=== PATIENT | female | born 1935 | race Caucasian/White ===

== ENCOUNTER → 2018-05-13 15:09 | Outpatient (CLI) | payer MEDICARE, OTHER, SELFPAY ==
--- NOTE | 2018-05-13 | DI.MG.S_ITS ---
UNILATERAL RIGHT DIGITAL SCREENING MAMMOGRAM 3D/2D WITH CAD: 05/13/2018 CLINICAL: Routine screening. Personal history of left breast cancer. Comparison is made to exams dated: 11/28/2016 mammogram, 12/07/2015 mammogram, and 11/30/2015 mammogram - [facility]. The tissue of the right breast is heterogeneously dense. This may lower the sensitivity of mammography. Current study was also evaluated with a Computer Aided Detection (CAD) system. There are clustered fine calcifications in the right breast at 4 o'clock middle depth. No other significant masses or calcifications are seen in the breast. IMPRESSION: INCOMPLETE: NEEDS ADDITIONAL IMAGING EVALUATION The clustered fine calcifications in the right breast are indeterminate. Mediolateral, spot magnification, and additional views are recommended. This exam was interpreted at Station ID: [id number]. NOTE: For mammograms, a report in lay terms will be sent to the patient. Approximately 15% of breast malignancies will not be visualized mammographically. In the management of a palpable breast mass, a negative mammogram must not discourage biopsy of a clinically suspicious lesion. Electronically Signed By: Raghav galloway/temitope:05/13/2018 18:12:01 copy to: TERRANCE CEVALLOS letter sent: Additional Imaging Needed ACR BI-RADS Category 0: Incomplete 3340F
== END ==
PROVIDERS: Visit Provider Internal Medicine Hematology & Oncology
DX: Z12.31 Encounter for screening mammogram for malignant neoplasm of breast (principal); Z85.3 Personal history of malignant neoplasm of breast
CPT/HCPCS: 77063; 77065

== ENCOUNTER → 2018-06-02 14:12 | Outpatient (CLI) | payer MEDICARE, OTHER, SELFPAY ==
--- NOTE | 2018-06-02 | DI.MG.S_ITS ---
UNILATERAL RIGHT DIGITAL DIAGNOSTIC MAMMOGRAM 3D/2D WITH ADDITIONAL VIEWS POST MASTECTOMY: 06/02/2018 CLINICAL: Additional evaluation requested from prior study. Comparison is made to exams dated: 05/13/2018 mammogram - [facility], 11/28/2016 mammogram, and 12/07/2015 mammogram - [facility]. The tissue of the right breast is heterogeneously dense. This may lower the sensitivity of mammography. Previously described clustered fine calcifications in the right breast at 4 o'clock middle depth on comparison screening mammograms persists with additional views and localizes to posterior depth, where there is a possible associated 0.5 cm low density oval mass. No other significant masses, calcifications, or other findings are seen in the breast. IMPRESSION: INCOMPLETE: NEEDS ADDITIONAL IMAGING EVALUATION Previously described clustered fine calcifications in the right breast at 4 o'clock middle depth on comparison screening mammograms persists with additional views and localizes to posterior depth, where there is a possible associated 0.5 cm low density oval mass. A targeted ultrasound is recommended for further evaluation, and will be performed immediately following this exam. This exam was interpreted at Station ID: [id number]. NOTE: For mammograms, a report in lay terms will be sent to the patient. Approximately 15% of breast malignancies will not be visualized mammographically. In the management of a palpable breast mass, a negative mammogram must not discourage biopsy of a clinically suspicious lesion. Electronically Signed By: Christian Cartagena M.D. ecl/:06/03/2018 12:44:44 copy to: TERRANCE CEVALLOS letter sent: Additional Imaging Needed ACR BI-RADS Category 0: Incomplete 3340F
--- NOTE | 2018-06-02 | DI.US.S_ITS ---
ULTRASOUND OF RIGHT BREAST: 06/02/2018 CLINICAL: Patient returns for additional imaging over a suspected mass in the right breast. Comparison is made to exams dated: 06/02/2018 mammogram, 05/13/2018 mammogram - [facility], and 11/28/2016 mammogram - [facility]. Real-time and Doppler targeted ultrasound of the right breast were performed. Avery scale images of the real-time examination were reviewed. There is a 0.6 x 0.5 x 0.4 area of heterogenous echogenicity identified in the right breast at 4:00 5 cm from the nipple with apparent associated calcifications that may correlate with the abnormality seen on comparison diagnostic mammography. No convincing discrete mass is identified. There is no abnormal vascularity to the region on Dopple imaging. IMPRESSION: PROBABLY BENIGN - FOLLOW-UP RECOMMENDED 0.6 x 0.5 x 0.4 area of heterogenous echogenicity identified in the right breast at 4:00 5 cm from the nipple with apparent associated calcifications that may correlate with the abnormality seen on comparison diagnostic mammography, but no discrete mass is identified. These calcifications are probably benign and a follow-up diagnostic mammogram with ultrasound in 6 months is recommended to demonstrate stability. This exam was interpreted at Station ID: [id number]. Electronically Signed By: Christian Cartagena M.D. ecl/:06/03/2018 12:52:23 copy to: TERRANCE CEVALLOS letter sent: Followup Recommended Ultrasound BI-RADS: 3 Probably benign
== END ==
PROVIDERS: PCP Family Medicine; Visit Provider Internal Medicine Hematology & Oncology
DX: R92.1 Mammographic calcification found on diagnostic imaging of breast (principal)
CPT/HCPCS: 76642; 77065; G0279

== ENCOUNTER → 2018-12-01 13:53 | Outpatient (CLI) | payer MEDICARE, OTHER, SELFPAY ==
--- NOTE | 2018-12-01 | DI.MG.S_ITS ---
UNILATERAL RIGHT DIGITAL DIAGNOSTIC MAMMOGRAM 3D/2D SHORT-TERM FOLLOW-UP: 12/01/2018 CLINICAL: Patient returns for a 6 month follow up of the right breast. Comparison is made to exams dated: 06/02/2018 mammogram, 05/13/2018 mammogram - [facility], and 11/28/2016 mammogram - [facility]. The tissue of right breast is heterogeneously dense. This may lower the sensitivity of mammography. Previously described clustered fine calcifications in the right breast at 4 o'clock middle depth on comparison screening mammograms persists with additional views and localizes to posterior depth, where there is a possible associated 0.5 cm low density oval mass. They appear more coarse today without increase in number or extent of distribution when compared to previous exam and may represent continued maturation of dystrophic calcifications. No other significant masses or calcifications are seen in the breast. IMPRESSION: INCOMPLETE: NEEDS ADDITIONAL IMAGING EVALUATION Previously described clustered fine calcifications in the right breast at 4 o'clock middle depth on comparison screening mammograms persists with additional views and localizes to posterior depth, where there is a possible associated 0.5 cm low density oval mass. A targeted ultrasound is recommended for further evaluation of the previously described 6mm area of heterogeneous echotexture in the right breast 4:00 o'clock position 5 cm from the nipple, and will be performed immediately following this exam. This exam was interpreted at Station ID: [id number]. NOTE: For mammograms, a report in lay terms will be sent to the patient. Approximately 15% of breast malignancies will not be visualized mammographically. In the management of a palpable breast mass, a negative mammogram must not discourage biopsy of a clinically suspicious lesion. Electronically Signed By: Lauri Beasley M.D. aty/:12/01/2018 15:27:56 copy to: TERRANCE NIX BI-RADS Category 0: Incomplete 3340F
--- NOTE | 2018-12-01 | DI.US.S_ITS ---
ULTRASOUND OF RIGHT BREAST: 12/01/2018 CLINICAL: 6 month follow-up on right breast. Comparison is made to exams dated: 12/01/2018 mammogram, 06/02/2018 ultrasound, 06/02/2018 mammogram, 05/13/2018 mammogram - [facility], 11/28/2016 mammogram, and 12/07/2015 mammogram - [facility]. Real-time ultrasound of the right breast was performed. Avery scale images of the real-time examination were reviewed. No abnormalities were seen sonographically in the right breast. The previously described 0.6cm area of heterogenous echogenicity identified in the right breast at 4:00 5 cm from the nipple with apparent associated calcifications that may correlate with the abnormality seen on comparison diagnostic mammography is no longer visualized on this study. No descrete mass or disturbed parenchymal echotexture is seen. IMPRESSION: PROBABLY BENIGN The previously described 0.6 cm area of heterogenous echogenicity identified in the right breast at 4:00 5 cm from the nipple is no longer visualized. However, there is persistence of the probably benign group of microcalcifications in the same region visualized on today's mammogram. These are again probably benign and warrant continued imaging surveillance. Recommend a follow-up bilateral mammogram with right breast ultrasound in 6 months to demonstrate stability. Based on mammographic evaluation at that time, the ultrasound may or may not be performed. This exam was interpreted at Station ID: [id number]. Electronically Signed By: Lauri Beasley M.D. aty/:12/01/2018 15:38:28 copy to: TERRANCE CEVALLOS letter sent: Followup Recommended Ultrasound BI-RADS: 3 Probably benign
== END ==
PROVIDERS: PCP Family Medicine; Visit Provider Internal Medicine Hematology & Oncology
DX: R92.1 Mammographic calcification found on diagnostic imaging of breast (principal)
CPT/HCPCS: 76642; 77065; G0279

== ENCOUNTER → 2019-05-19 14:42 | Outpatient (CLI) | payer MEDICARE, OTHER, SELFPAY ==
--- NOTE | 2019-05-19 | DI.MG.S_ITS ---
UNILATERAL RIGHT DIGITAL DIAGNOSTIC MAMMOGRAM 3D/2D SHORT-TERM FOLLOW-UP: 05/19/2019 CLINICAL: Patient returns for a 6 month follow up of the right breast. Comparison is made to exams dated: 12/01/2018 mammogram, 06/02/2018 mammogram, and 05/13/2018 mammogram - [facility]. The tissue of right breast is heterogeneously dense. This may lower the sensitivity of mammography. There is 0.6 cm oval equal density focal asymmetry with an indistinct and circumscribed margin in the right breast at 6 o'clock middle depth. There also is 0.4 cm oval equal density focal asymmetry with an indistinct and circumscribed margin in the right breast at 6 o'clock posterior depth. Additionally, there are a grouped fine punctate calcifications in the right breast at 3 o'clock posterior depth. These are not significantly changed. In addition, there are a grouped punctate calcifications in the right breast at 2 o'clock middle depth. These are increased in number of calcifications. No other significant masses or calcifications are seen in the breast. IMPRESSION: INCOMPLETE: NEEDS ADDITIONAL IMAGING EVALUATION The 0.6 cm oval equal density focal asymmetry in the right breast at 6 o'clock middle depth is indeterminate. An ultrasound is recommended. The 0.4 cm oval equal density focal asymmetry in the right breast at 6 o'clock posterior depth is indeterminate. An ultrasound is recommended. The grouped fine punctate calcifications in the right breast at 3 o'clock posterior depth are probably benign. A follow-up mammogram in 6 months is recommended. The grouped punctate calcifications in the right breast at 2 o'clock middle depth are probably benign. A follow-up mammogram in 6 months is recommended. This exam was interpreted at Station ID: [id number]. NOTE: For mammograms, a report in lay terms will be sent to the patient. Approximately 15% of breast malignancies will not be visualized mammographically. In the management of a palpable breast mass, a negative mammogram must not discourage biopsy of a clinically suspicious lesion. Electronically Signed By: Raghav galloway/temitope:05/19/2019 15:41:51 copy to: TERRANCE NIX BI-RADS Category 0: Incomplete 3340F
--- NOTE | 2019-05-19 | DI.US.S_ITS ---
LIMITED ULTRASOUND OF RIGHT BREAST: 05/19/2019 CLINICAL: 6 month follow-up, and 2 new possible masses. Comparison is made to exams dated: 05/19/2019 mammogram, 12/01/2018 ultrasound, 12/01/2018 mammogram, 06/02/2018 ultrasound, 06/02/2018 mammogram, and 05/13/2018 mammogram - [facility]. Color flow and real-time ultrasound of the right breast 6 o'clock region were performed on the areas of interest. There is a benign 0.8 cm x 0.6 cm x 0.7 cm oval cyst with a smooth internal wall in the right breast at 6 o'clock middle depth. This oval cyst is anechoic with a well-defined boundary and posterior acoustic enhancement. This correlates with mammography findings. Color flow imaging demonstrates that there is no vascularity present. There also is a benign 0.7 cm x 0.6 cm x 0.6 cm oval cyst with a smooth internal wall in the right breast at 6 o'clock middle depth. This oval cyst is anechoic with a well-defined boundary and posterior acoustic enhancement. This correlates with mammography findings. Color flow imaging demonstrates that there is no vascularity present. IMPRESSION: PROBABLY BENIGN The 0.8 cm x 0.6 cm x 0.7 cm oval cyst in the right breast at 6 o'clock middle depth is benign. The 0.7 cm x 0.6 cm x 0.6 cm oval cyst in the right breast at 6 o'clock middle depth is benign. A follow-up mammogram in 6 months is recommended to demonstrate stability of the calcifications seen on mammogram. This exam was interpreted at Station ID: [id number]. Electronically Signed By: Raghav galloway/:05/19/2019 16:04:20 copy to: TERRANCE CEVALLOS letter sent: Followup Recommended Ultrasound BI-RADS: 3 Probably benign
== END ==
PROVIDERS: PCP Family Medicine; Visit Provider Family Medicine
DX: R92.8 Other abnormal and inconclusive findings on diagnostic imaging of breast (principal)
CPT/HCPCS: 76642; 77065; G0279